=== PATIENT | female | born 1940 | race Caucasian/White ===

== ENCOUNTER → 2017-02-09 | Outpatient (CLI) | payer OTHER ==
[~2017-02-09] MED LIST: AMLODIPINE BESYL5 MG PO; CALCITONIN-SAL3.7 ML; COZAAR PO; DIOVAN320 MG PO; FORTICAL; HUMULIN 70/30 V10 ML SUBQ; HUMULIN 70100 UNIT/2; IRBESARTAN75 MG PO; LEVOTHROID75 MCG PO; LEVOTHYROXINE75 MC1 PO; LISINOPRIL PO; MULTI-VITAMIN1 TAB PO; NOVOLIN 70/30 V10 ML INJ; SIMVASTATIN20 MG PO; ZESTRIL40 MG PO; ZOCOR PO; [UNRECOGNIZED DRUG - REMARK]
--- NOTE | ~2017-02-09 | MY29 ---
[facility] A Service of [facility] & [facility] RADIOLOGY TEXT RESULTS PATIENT: ALIVIA CHAUDHARY LOCATION: [facility] : 38 UNIT #: [id number] AGE: [address]: Michael Holbrook MD SEX: F ORDER DR: [id number] [facility] [address] [place], [place] [address] [id number] O MR#: [id number] Acc #: [id number] NAME: ALIVIA CHAUDHARY : 1940 SEX: F STUDY DATE/TIME: 02/09/2017 9:38 UNIT: [facility] ROOM: STUDY DESCRIPTION: MY MARK SCREENING W/ CAD BILAT Attending Physician: Michael Holbrook M.D. Referring Physician: Michael Holbrook M.D. Ordering Physician: Michael Holbrook M.D. Primary Care Physician: Michael Holbrook M.D. MEDICAL IMAGING REPORT This report is preliminary unless electronic signature is present EXAM Digital screening mammogram, 02/09/2017 HISTORY 76-year-old woman no risk elevation. Annual screening. COMPARISON Mammograms date to 07/30/2006 with most recent 01/15/2016. FINDINGS Digital imaging of each breast was completed utilizing a two-view examination of each breast in craniocaudal and mediolateral-oblique projections. Review and interpretation of digital mammograms include a second review in conjunction with FDA-approved CAD device. There is a normal parenchymal presentation bilaterally consistent with the patient's age. There are no breast masses imaged and no parenchymal asymmetry is visualized. There are no suspicious microcalcifications and I see no focal architectural disturbance. IMPRESSION Negative screening digital mammogram. One-year followup recommended. Patients over the age of 40 are entered into a reminder system with target due date for the next mammogram. A result letter will also be sent to the patient. BIRADS: 1 Negative Dictated by... Gaurav Marley M.D. THIS IS AN ELECTRONICALLY VERIFIED REPORT Gaurav Marley M.D. at 02/09/2017 2:44 PM [facility] A Service of [facility] & [facility] RADIOLOGY TEXT RESULTS PATIENT: ALIVIA CHAUDHARY LOCATION: [facility] : 38 UNIT #: [id number] AGE: [address]: Michael Holbrook MD SEX: F ORDER DR: Alfonso TD: 02/09/2017 13:06 JOB #: [id number] MEDICAL IMAGING REPORT Page 1 of 1 COPY
== END | disposition home or self-care (01) ==
LOC: CWCC 09:04
DX: Z12.31 Encounter for screening mammogram for malignant neoplasm of breast (principal)
CPT/HCPCS: G0202